=== PATIENT | female | born 1945 | race African-American/Black ===

== ENCOUNTER 2017-12-09 05:29 | Inpatient (IN) | payer OTHER ==
[2017-11-17 11:40] LABS: HEMATOCRIT 34.6 % (37.0-47.0); MCH 32.9 pg (26.0-34.0); MCHC 34.7 g/dL (28.0-37.0); MCV 94.8 fL (80.0-100.0); RBC 3.65 mil/uL (4.20-5.00); RDW 13.4 % (10.5-14.5); WBC 7.5 thou/uL (4.0-11.0)
[2017-11-17 11:42] LABS: URINE BILIRUBIN NEGATIVE (Negative); URINE BLOOD TRACE (Negative); URINE CLARITY CLEAR; URINE COLOR YELLOW; URINE GLUCOSE-RANDOM* NEGATIVE (Negative); URINE KETONES NEGATIVE (Negative); URINE LEUKOCYTES-REFLEX NEGATIVE (Negative); URINE NITRITE-REFLEX NEGATIVE (Negative); URINE PROTEIN (DIPSTICK) NEGATIVE (Negative); URINE UROBILINOGEN 0.2 E.U./dl (0.2-1.0)
[2017-11-17 11:48] LABS: ALBUMIN 4.1 g/dL (3.4-5.0); CALCIUM 10.3 mg/dL (8.5-10.1); CREATININE 1.1 mg/dL (0.6-1.0); POTASSIUM 3.7 mmol/L (3.5-5.1)
[~2017-12-09] VITALS: Ht 167.6 cm; Wt 94.7 kg
[2017-12-09] VITALS (7 sets, daily range): BP systolic 89–144; BP diastolic 56–81
--- NOTE | ~2017-12-09 | O ---
[facility] [place] [address] OPERATIVE REPORT Name: ELIANE LYLE Room #: 405-P ADM IN M.R.#: [id number] Admission: 12/09/17 Attend Phys: Marlon Pinto MD Discharge: Date of : 49 Report #: [id number] THIS REPORT FOR: //name// CC: Molly Pinto DATE OF SERVICE: 12/09/2017 PREOPERATIVE DIAGNOSIS: Severe left knee osteoarthritis. POSTOPERATIVE DIAGNOSIS: Severe left knee osteoarthritis. PROCEDURE: Left total knee arthroplasty with robotic Navio assistance. SURGEON: Marlon Pinto MD. CYCLE CONSULTANT: Ashley Gaspar PA-C. INDICATIONS FOR CYCLE CONSULTANT: Throughout the case, extensive retraction and manipulation of the knee was required. This was afforded to me by my bilingual teacher assistant. ANESTHESIA: LMA with an adductor canal block. IMPLANTS: [employer] size 7 Legion cobalt chrome femur, a size 5 tibia, size 13 polyethylene and a size 35 patella. TOURNIQUET TIME: 86 minutes. ESTIMATED BLOOD LOSS: 25 mL. COMPLICATIONS: None. SPECIMENS: None. CONDITION UPON LEAVING THE OPERATING ROOM: Stable. INDICATION FOR PROCEDURE: The patient is a 72-year-old female with severe left knee valgus osteoarthritis. She had failed conservative treatment for this and after discussion with her, she elected for left total knee arthroplasty. DESCRIPTION OF PROCEDURE: Risks, benefits, alternatives, complications were discussed in detail with the patient including but not limited to risk of anesthesia; risk of damage to nerves, arteries, blood vessels; risk for infection and bleeding; risk for continued knee pain; need for reoperation. Informed consent was obtained from the patient. Left knee was appropriately marked in the preoperative holding area. Adductor canal block was placed by [address] [address] OPERATIVE REPORT Name: ELIANE LYLE Room #: 405-P [facility] IN ..#: [id number] Admission: 12/09/17 Attend Phys: Marlon Pinto MD Discharge: Date of : 49 Report #: [id number] Anesthesia. IV Ancef given for preoperative antibiotics. She was brought to the operating room and placed in supine position on operating room table. LMA anesthesia was induced without complication. Tourniquet was placed on left thigh. Left lower extremity was prepped and draped in normal sterile fashion. Timeout was performed, properly identifying the patient and procedure as well as the instrumentation and implants. All in the operating room were in agreement. Right lower extremity was exsanguinated, tourniquet was inflated. Tourniquet time was 86 minutes. Standard midline approach to knee was made with 10 blade through the skin. Dissection was taken down sharply to the fascia and deep flaps were developed medially and laterally. Fresh 10 blade was used to make a medial parapatellar arthrotomy and the knee was inspected. There was extensive osteoarthritic change, most severe in the lateral compartment. Osteophytes were removed from the femur and tibia. The ACL and PCL were resected. Reference pins were then placed in the femur and the tibia and data collection was taken up on the knee using the Buyou robotic assistance computer system. This was set for a size 7 femur and a size 5 tibia. The distal femoral cut was made with the bur and the size 7 four-in-one cutting block was placed. Anterior, posterior and chamfer cuts were made. Attention was then turned to the tibia. The remainder of the ACL and PCL were removed with Bovie cautery and the Buyou lyla was used to make the drill holes for the tibial resection guide. Tibial resection was pinned in place and tibial resection was made. After this, flexion and extension gaps were checked and found to have equal flexion and extension both medially and laterally. The size 5 tibial trial was placed, size 7 femoral trial was placed and the box cut was made. Post was placed and the knee was then trialed with a size 11 and then a size 13 polyethylene, at which point the size 13 was stable in flexion and extension medially and laterally. A 9 mm was taken off the posterior surface of the patella and a size 35 patellar resurfacing trial was placed. Knee was taken through range of motion, found to be stable, found to have slight lateral patellar tracking and this to be evaluated after the tourniquet was deflated. After this, trial components were removed. Bone ends were thoroughly irrigated with normal saline. Final size 5 tibia, size 7 Legion cobalt chrome posterior stabilized femur and a size 35 patella were cemented in place using standard cementation techniques. While the cement cured, a periarticular injection consisting of morphine, ropivacaine, epinephrine and Toradol was placed around the knee joint. After the cement cured, tourniquet was deflated. Hemostasis was obtained with Bovie cautery. Patellar tracking was checked again and a lateral release was performed with the Bovie cautery. This adjusted the patellar tracking well. A gram of vancomycin was placed deep in the joint. A final size 13 polyethylene was placed. Fascia was closed with 0 Vicryl, skin was closed with 2-0 Vicryl, 3-0 Monocryl, Dermabond and a JOSE ALBERTO dressing was applied. The patient tolerated this procedure well and went to recovery room under care of Anesthesia postoperatively. <ELECTRONICALLY SIGNED> By: Marlon Pinto MD 12/11/17 1005 [id number] Marlon Pinto MD /nt
[~2017-12-09 05:29] MED LIST: ASPIR 8181 MG PO; ATORVASTATIN CA20 MG PO; CENTRUM SILVER1 EAC4 PO; LISINOPRIL-HCT1 EAC2 PO; LOPRESSOR25 PO; LUMIGAN2.5 M1 OP; MOBIC15 MG PO; OMEGA 3 1,0001 EACH PO; POTASSIUM20 PO; PRED FORTE 1% EY5 M1 OPHTHALMIC; TRAMADOL 50 MG50 MG PO; TRUSOPT OCUMETE10 ML OPHTHALMIC; ULTRAM 50MG TAB50 MG PO; VOLTAREN100 GM
[2017-12-10] VITALS (7 sets, daily range): BP systolic 80–139; BP diastolic 48–70
[2017-12-10 05:58] LABS: HEMATOCRIT 27.5 % (37.0-47.0); HEMOGLOBIN 9.5 gm/dL (12.0-15.0); MCH 33.3 pg (26.0-34.0); MCHC 34.7 g/dL (28.0-37.0); MCV 95.9 fL (80.0-100.0); RBC 2.87 mil/uL (4.20-5.00)
[2017-12-11 04:00] VITALS: BP 101/55
[2017-12-11 06:56] LABS: HEMATOCRIT 26.2 % (37.0-47.0); HEMOGLOBIN 9.3 gm/dL (12.0-15.0); MCH 33.4 pg (26.0-34.0); MCHC 35.2 g/dL (28.0-37.0); MCV 94.7 fL (80.0-100.0); RBC 2.77 mil/uL (4.20-5.00); RDW 13.1 % (10.5-14.5); WBC 7.4 thou/uL (4.0-11.0)
[2017-12-11 07:31] VITALS: BP 123/53
[2017-12-11 12:09] VITALS: BP 100/51
[2017-12-11 14:13] VITALS: BP 101/59
[2017-12-11 16:15] VITALS: BP 105/63
[2017-12-11 17:43] VITALS: BP 105/63
== END 2017-12-11 19:46 | disposition home or self-care (01) | DRG 470 ==
LOC: 4N 05:29 → TBA 05:29 → PRE 05:45 → 4N 11:33 → PRE 14:24 → ENTRNSPT 12-11 18:22 → 4N 12-11 19:46
PROVIDERS: Orthopaedic Surgery
PROC: 0SRD0J9 Replacement of Left Knee Joint with Synthetic Substitute, Cemented, Open Approach (ICD-10-PCS; principal; 2017-12-09)
DX: M17.12 Unilateral primary osteoarthritis, left knee (principal); I10 Essential (primary) hypertension; H40.9 Unspecified glaucoma; M17.11 Unilateral primary osteoarthritis, right knee; Z90.710 Acquired absence of both cervix and uterus; I25.2 Old myocardial infarction; Z82.49 Family history of ischemic heart disease and other diseases of the circulatory system; Z82.61 Family history of arthritis; Z79.899 Other long term (current) drug therapy; Z87.891 Personal history of nicotine dependence; Z98.61 Coronary angioplasty status
CPT/HCPCS: 10790; 50010; 50101; 50415; 50954; 51130; 51225; 51771; 53000; 53078; 53364; 54118; 56527; 56528; 57095; 57127; 62110; 62900; 70005